=== PATIENT | female | born 1930 | race Caucasian/White ===

== ENCOUNTER 2017-08-06 21:37 | Emergency (ER) | payer MEDICARE ==
[~2017-08-06] VITALS: Ht 152.4 cm; Wt 54.4 kg
[2017-08-06] MEDS ORDERED: TYLENOL WITH C1 EACH PO (22:04)
[2017-08-06] MEDS ORDERED: LISINOPRIL2.5 MG PO (22:04)
[2017-08-06] MEDS ORDERED: ATIVAN0.5 MG PO (22:04)
[2017-08-06] MEDS ORDERED: RISPERIDONE1 MG PO (22:04)
[2017-08-06] MEDS ORDERED: LACTULOSE20 GM/30 M PO (22:04)
[2017-08-06] MEDS ORDERED: NICOTINE PATCH1 EAC1 SUBD (22:04)
[2017-08-06] MEDS ORDERED: BACITRACIN ZINC 0.9GM TP ONE ×2 (23:11→23:15)
--- NOTE | 2017-08-06 23:48 | Diagnostic Imaging Report ---
EXAMINATION: Head and cervical spine CT without contrast. HISTORY: Trauma and pain. Status post fall in hospital COMPARISON: None. TECHNIQUE: Multidetector axial images were obtained without contrast from the foramen magnum to the vertex and through the cervical spine. The images were reconstructed using brain and bone algorithms. Thin section brain images were reformatted into coronal and sagittal planes. HEAD CT FINDINGS: Skull: No lytic or blastic lesions. No fractures. Parenchyma: -Moderate confluent periventricular, coronary stent with minimal inflammatory hypodensities, most likely nonspecific chronic microvascular ischemic changes. 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 -No mass, hemorrhage or CT evidence of acute vascular insult. Brain volume: Generalized brain volume loss, with disproportionate right greater than left medial temporal/hippocampal atrophy, which can be seen in patients with Alzheimer's disease, only in the appropriate clinical setting. Ventricles: No hydrocephalus or displacement. Arteries: No density suggestive of thrombus. Dural sinuses: No abnormal density. Extra-axial spaces: No abnormal density. Foramen magnum: No mass, Chiari malformation, or basilar invagination. Sella: No obvious mass. Paranasal/mastoid sinuses: Imaged portions unremarkable. CERVICAL SPINE CT FINDINGS: Alignment:Normal alignment and lordosis. Soft tissues: Partially visualized pleural-parenchymal scarring in the lung apices.. Vertebrae: Normal height and density. No acute fracture, infection or neoplasm. Degenerative changes: C1-C2: Normal. C2-C3: Disc osteophyte, uncovertebral and facet arthrosis. No significant stenoses. C3-C4: Facet arthrosis without stenosis. C4-C5: Facet arthrosis without stenosis. C5-C6: Disc osteophyte complex formation, bilateral uncovertebral and facet arthrosis. Mild right and moderate left foraminal stenosis. Mild canal narrowing.. C6-C7: Disc osteophyte complex formation, bilateral uncovertebral and facet arthrosis. Mild bilateral foraminal stenoses. C7-T1: Normal. IMPRESSION: Head CT: 1. No acute posttraumatic intracranial abnormality, particularly no hemorrhage. 2. Moderate chronic microvascular ischemic changes. 3. Disproportionate hippocampal atrophy as detailed above. Cervical spine CT: 1. No acute fractures or dislocations. 2. Chronic degenerative changes as described. Note: Acute post traumatic spinal cord, vascular or ligamentous injury cannot adequately be assessed with CT. Signed by: Dr. Alma Hurtado M.D. on 08/06/2017 11:44 PM
== END 2017-08-07 01:32 | disposition home or self-care (01) ==
LOC: ER 21:37
DX: S51.811A Laceration without foreign body of right forearm, initial encounter (principal); S81.812A Laceration without foreign body, left lower leg, initial encounter; W01.0XXA Fall on same level from slipping, tripping and stumbling without subsequent striking against object, initial encounter; Y93.01 Activity, walking, marching and hiking; Y92.129 Unspecified place in nursing home as the place of occurrence of the external cause; Z91.81 History of falling
CPT/HCPCS: 70450; 72125; 93005; 99284

== ENCOUNTER 2017-08-09 06:37 | Emergency (ER) | payer MEDICARE ==
[~2017-08-09] VITALS: Ht 152.4 cm; Wt 54.4 kg
[~2017-08-09 06:37] MED LIST: ATIVAN0.5 MG PO; LACTULOSE20 GM/30 M PO; LISINOPRIL2.5 MG PO; NICOTINE PATCH1 EAC1 SUBD; RISPERIDONE1 MG PO; TYLENOL WITH C1 EACH PO
--- NOTE | 2017-08-09 08:06 | Diagnostic Imaging Report ---
EXAMINATION: Head and cervical spine CT without contrast. HISTORY: S/P fall COMPARISON: CT head and C spine 08/06/2017 TECHNIQUE: Multidetector axial images were obtained without contrast from the foramen magnum to the vertex and through the cervical spine. The images were reconstructed using brain and bone algorithms. Thin section brain images were reformatted into coronal and sagittal planes. HEAD CT FINDINGS: Skull: No lytic or blastic lesions. No fractures. Parenchyma: -Confluent and scattered periventricular and deep white matter hypodensities, most likely nonspecific chronic microvascular ischemic changes. 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 -No mass, hemorrhage or CT evidence of acute vascular insult. Brain volume: Generalized brain volume loss, with disproportionate right greater than left medial temporal/hippocampal atrophy, stable. Ventricles: No hydrocephalus or displacement. Arteries: No density suggestive of thrombus. Dural sinuses: No abnormal density. Extra-axial spaces: No abnormal density. Foramen magnum: No mass, Chiari malformation, or basilar invagination. Sella: No obvious mass. Paranasal/mastoid sinuses: Imaged portions unremarkable. Incidental findings: Atherosclerotic calcifications in the carotid siphons and vertebral arteries . CERVICAL SPINE CT FINDINGS: Alignment:Normal alignment and lordosis. Soft tissues: Partially visualized pleural-parenchymal scarring in the lung apices.. Vertebrae: Normal height and density. No acute fracture, infection or neoplasm. Degenerative changes: C1-C2: Normal. C2-C3: Disc osteophyte, uncovertebral and facet arthrosis. No significant stenoses. C3-C4: Facet arthrosis without stenosis. C4-C5: Facet arthrosis without stenosis. C5-C6: Disc osteophyte complex formation, bilateral uncovertebral and facet arthrosis. Mild right and moderate left foraminal stenosis. Mild canal narrowing.. C6-C7: Disc osteophyte complex formation, bilateral uncovertebral and facet arthrosis. Mild bilateral foraminal stenoses. C7-T1: Normal. IMPRESSION: Head CT: 1. No acute posttraumatic intracranial abnormality, particularly no hemorrhage. 2. Moderate chronic microvascular ischemic changes. 3. Disproportionate hippocampal atrophy as detailed above, stable. Cervical spine CT: 1. No acute fractures or dislocations. 2. Chronic degenerative changes as described. Note: Acute post traumatic spinal cord, vascular or ligamentous injury cannot adequately be assessed with CT. Signed by: DR Beltran Mary M.D. on 08/09/2017 8:02 AM
== END 2017-08-09 10:30 | disposition home or self-care (01) ==
LOC: ER 06:37
DX: S00.83XA Contusion of other part of head, initial encounter (principal); W18.39XA Other fall on same level, initial encounter; Z91.81 History of falling; Y92.128 Other place in nursing home as the place of occurrence of the external cause; F03.90 Unspecified dementia, unspecified severity, without behavioral disturbance, psychotic disturbance, mood disturbance, and anxiety; E87.1 Hypo-osmolality and hyponatremia
CPT/HCPCS: 70450; 72125; 99284